=== PATIENT | female | born 1980 | race Hispanic/Latino ===

== ENCOUNTER 2018-08-12 15:22 | Emergency (ER) | payer SELFPAY ==
[~2018-08-12 15:22] MED LIST: Iopamidol 370 76% 100 ML VIAL ONE
[2018-08-12] MEDS ORDERED: Morphine 4 MG/ML VIAL ONE (16:51)
[2018-08-12] MEDS ORDERED: Dexamethasone 20 MG/5 ML VIAL ONE (16:52)
[2018-08-12] MEDS ORDERED: Ondansetron PF 4 MG/2 ML Vial ONE (16:52)
[2018-08-12] MEDS ORDERED: Sodium Chloride 0.9% 1,000 ML ONE (16:52)
[2018-08-12 16:53] LABS: #Basophils 0.1 thou/uL (0.0-0.2)
[2018-08-12 17:03] LABS: Hemoglobin 12.7 g/dL (12.0-16.0); Red Blood Cell (RBC) Count 5.32 mill/uL (4.20-5.40)
[2018-08-12 17:04] LABS: Mean Corpuscular HGB CONC 29.7 g/dL (32.0-36.0); Mean Corpuscular Hemoglobin 23.9 pg (27.0-31.0); Mean Corpuscular Volume 80.6 fL (78.0-98.0); Mean Platelet Volume 11.9 fL (7.4-10.4); Platelet Count 239 thou/uL (130-400); RBC Distribution Width 21.4 % (11.5-14.5)
[2018-08-12 17:05] LABS: #Neutrophils 11.3 thou/uL (1.40-6.50); %Basophils 0.5 % (0.0-1.0); %Eosinophils 0.3 % (0.0-10.0); %Lymphocytes 13.9 % (21.0-51.0); %Neutrophils 80.4 % (42.0-75.0)
[2018-08-12 17:06] LABS: #Monocytes 0.7 thou/uL (0.11-0.59)
[2018-08-12 17:11] LABS: Anion Gap 15 mmol/L (10-20); BUN (Urea Nitrogen) 7 mg/dL (7.0-18.7); Calc. Creatinine Clearance 0 mL/min (70-130); Calcium 9.6 mg/dL (7.8-10.44); Carbon Dioxide 22 mmol/L (22-29); Chloride 104 mmol/L (98-107); Estimated GFR-MDRD Greater than 90; Glucose 125 mg/dL (70-105); Potassium 3.5 mmol/L (3.5-5.1); Sodium 137 mmol/L (136-145)
[2018-08-12 17:14] LABS: Pregnancy Test - Urine (BHCG) Negative (Negative); Pregu Control Background? CLEAR/WHITE (CLR/WHITE); Pregu Control Bar Appear? YES (CONTROL BAR); Specific Gravity 1.021 (1.002-1.036)
--- NOTE | 2018-08-12 18:03 | CT ---
FCT NECK SOFT TISSUES, WITH CONTRAST: CLINICAL INDICATION:Pharyngitis, pain COMPARISON: No prior comparison imaging FINDINGS: Aerodigestive tract:There is rightward deviation of the trachea and the esophagus due to large mass-l luis prominence emanating from the left thyroid lobe region. There is effacement of the left piriform sinus, as well. Soft tissue mass:Large, lobulated hypodense mass-like fluid density collection arises from the region of the left thyroid lobe, which is replaced and attenuated as a result. This deviates the remaining thyroid tissue to the right of midline and markedly displaces regional neck structures as a result of the large volume. Mass-like fluid density collection measures 6.3 cm craniocaudal x approximately 4. 2 cm AP x 3.9 cm transverse. Lymph nodes:Several borderline size lymph nodes are present with central hypodensity that may relate to fatty daisy. Possibility of underlying necrotic adenopathy cannot be entirely excluded. Salivary glands:No intrinsic pathology There is extensive soft tissue edema surrounding the above-described left thyroid fluid density colle ction, including a large volume of retropharyngeal edema descending to the visualized superior medias tinum. Incidental findings:None of significance IMPRESSION: Large mass-like, lobulated fluid density collection centered within the left thyroid lobe. Given the extensive degree of inflammation with associated retropharyngeal edema that descends to the visualize d paramediastinum, this favors acute suppurative thyroiditis with associated thyroid abscess. Underly ing malignancy cannot be excluded. Recommend otolaryngology consultation. Consideration for branchial cleft anomaly is recommended, give n the known association with thyroid abscess formation. Transcribed Date/Time: 08/12/2018 7:16 PM
[2018-08-12] MEDS ORDERED: cefTRIAXone\\ROCEPHIN 1 GM VIAL ONE (20:13)
[2018-08-12] MEDS ORDERED: Dexamethasone 4 mg/ml Vial ONE (20:13)
== END 2018-08-12 21:17 | disposition short-term general hospital (02) ==
LOC: NAV ERS 15:22
DX: E06.0 Acute thyroiditis (principal); K04.7 Periapical abscess without sinus; Z79.899 Other long term (current) drug therapy
CPT/HCPCS: 36415; 70492; 80048; 81025; 85025; 87081; 87430; 96361; 96374; 96375; 96376; J0696; J1100; J1170; J2270; J2405; J7050; Q9967

== ENCOUNTER 2019-01-09 06:45 | Emergency (ER) | payer SELFPAY ==
[~2019-01-09 06:45] MED LIST changes: -Iopamidol 370 76% 100 ML VIAL ONE; +Sodium Chloride 0.9% 1,000 ML BAG ONE
[2019-01-09 07:28] LABS: #Basophils 0.1 thou/uL (0.0-0.2); #Eosinphils 0.3 thou/uL (0.0-0.7); #Lymphocytes 2.1 thou/uL (1.20-3.40); #Monocytes 0.5 thou/uL (0.11-0.59); #Neutrophils 7.3 thou/uL (1.40-6.50); %Basophils 1.2 % (0.0-1.0); %Eosinophils 2.7 % (0.0-10.0); %Lymphocytes 20.6 % (21.0-51.0); %Monocytes 4.8 % (0.0-10.0); %Neutrophils 70.8 % (42.0-75.0); Hemoglobin 10.9 g/dL (12.0-16.0); Mean Corpuscular Hemoglobin 27.7 pg (27.0-31.0); Mean Corpuscular Volume 86.5 fL (78.0-98.0); Mean Platelet Volume 9.8 fL (7.4-10.4); Platelet Count 263 thou/uL (130-400); RBC Distribution Width 14.1 % (11.5-14.5); Red Blood Cell (RBC) Count 3.93 mill/uL (4.20-5.40); White Blood Cell (WBC) Count 10.3 thou/uL (4.8-10.8)
[2019-01-09 07:45] LABS: ALT (SGPT) 36 U/L (8-55); AST (SGOT) 43 U/L (5-34); Albumin 4.1 g/dL (3.5-5.0); Alkaline Phosphatase 80 U/L (40-150); Anion Gap 20 mmol/L (10-20); BUN (Urea Nitrogen) 8 mg/dL (7.0-18.7); Bilirubin, Total 0.2 mg/dL (0.2-1.2); Calc. Creatinine Clearance 0 mL/min (70-130); Carbon Dioxide 21 mmol/L (22-29); Chloride 102 mmol/L (98-107); Estimated GFR-MDRD 79; Globulin 4.1 g/dL (2.4-3.5); Glucose 158 mg/dL (70-105); Potassium 3.6 mmol/L (3.5-5.1); Protein, Total 8.2 g/dL (6.0-8.3); Sodium 139 mmol/L (136-145)
[2019-01-09 07:53] LABS: Calcium 4.4 mg/dL (7.8-10.44)
[2019-01-09] MEDS ORDERED: Calcium Gluc 4.6 MEQ/10 ML (100 MG/ML) ONE ×3 (07:59→09:18)
[2019-01-09] MEDS ORDERED: Dextrose 5% in Water 250 ML ONE ×2 (08:00→09:27)
[2019-01-09 08:09] LABS: Magnesium 1.6 mg/dL (1.6-2.6)
[2019-01-09 08:10] LABS: Phosphorus 6.2 mg/dL (2.3-4.7)
--- NOTE | 2019-01-09 08:11 | RAD ---
RADIOGRAPH CHEST 1 VIEW: DATE: 01/09/2019 HISTORY: 38-year-old female with chest pain FINDINGS: There are no airspace densities, pulmonary edema, pneumothorax, or cardiomegaly. The lateral costophr enic angles are sharp. IMPRESSION: No acute cardiopulmonary findings.
[2019-01-09] MEDS ORDERED: Dextrose 5% in Water 250 ML IVPB PRN (09:26)
[2019-01-09] MEDS ORDERED: WATER IVPB SCH (09:30)
[2019-01-09] MEDS ORDERED: DEXTROSE 5% IVPB SCH (09:30)
[2019-01-09] MEDS ORDERED: CALCIUM GLUCONATE IVPB SCH (09:30)
== END 2019-01-09 13:32 | disposition short-term general hospital (02) ==
LOC: NAV ERS 06:45
DX: E83.51 Hypocalcemia (principal); Z79.899 Other long term (current) drug therapy
CPT/HCPCS: 36415; 71045; 80053; 82550; 83735; 84100; 84484; 85025; 93005; 94760; 96361; 96365; 96366; J7050; J7070

== ENCOUNTER 2019-04-03 13:06 | Emergency (ER) | payer OTHER, SELFPAY ==
[2019-04-03 14:02] LABS: #Basophils 0.1 thou/uL (0.0-0.2); #Eosinphils 0.2 thou/uL (0.0-0.7); #Lymphocytes 1.7 thou/uL (1.20-3.40); #Monocytes 0.5 thou/uL (0.11-0.59); #Neutrophils 6.5 thou/uL (1.40-6.50); %Basophils 1.2 % (0.0-1.0); %Eosinophils 2.5 % (0.0-10.0); %Lymphocytes 18.7 % (21.0-51.0); %Monocytes 5.4 % (0.0-10.0); %Neutrophils 72.2 % (42.0-75.0); Hemoglobin 10.7 g/dL (12.0-16.0); Mean Corpuscular HGB CONC 30.1 g/dL (32.0-36.0); Mean Corpuscular Volume 83.2 fL (78.0-98.0); Mean Platelet Volume 12.7 fL (7.4-10.4); Platelet Count 304 thou/uL (130-400); Red Blood Cell (RBC) Count 4.28 mill/uL (4.20-5.40)
[2019-04-03 14:14] LABS: ALT (SGPT) 23 U/L (8-55); AST (SGOT) 26 U/L (5-34); Albumin 4.2 g/dL (3.5-5.0); Alkaline Phosphatase 91 U/L (40-110); Anion Gap 18 mmol/L (10-20); BUN (Urea Nitrogen) 9 mg/dL (7.0-18.7); Bilirubin, Total 0.2 mg/dL (0.2-1.2); CK (CPK) 706 U/L (29-168); Calc. Creatinine Clearance 0 mL/min (70-130); Carbon Dioxide 24 mmol/L (22-29); Chloride 100 mmol/L (98-107); Estimated GFR-MDRD 85; Globulin 4.1 g/dL (2.4-3.5); Glucose 129 mg/dL (70-105); Magnesium 1.6 mg/dL (1.6-2.6); Phosphorus 6.3 mg/dL (2.3-4.7); Potassium 3.8 mmol/L (3.5-5.1); Protein, Total 8.3 g/dL (6.0-8.3); Sodium 138 mmol/L (136-145)
[2019-04-03 14:21] LABS: Calcium 4.7 mg/dL (7.8-10.44)
[2019-04-03] MEDS ORDERED: Calcium Gluc 4.6 MEQ/10 ML (100 MG/ML) ONE (14:34)
[2019-04-03] MEDS ORDERED: Calcium Gluconate 9.2 MEQ in Sodium Chloride 0.9% 100 ML IVPB SCH (16:00)
== END 2019-04-03 17:15 | disposition short-term general hospital (02) ==
LOC: NAV ERS 13:06
DX: E83.51 Hypocalcemia (principal); E03.9 Hypothyroidism, unspecified; Z79.899 Other long term (current) drug therapy
CPT/HCPCS: 80053; 82550; 83735; 83880; 84100; 84443; 84484; 85025; 93005; 96365; 96366; J3490; J7070